=== PATIENT | female | born 1945 | race Two or more races ===

== ENCOUNTER → 2016-11-23 | Outpatient (CLI) | payer OTHER, MEDICAID ==
[~2016-11-23] MED LIST: AMIT50TA3 PO; ASPI81CH43 PO; CITA-77 PO; CLON0.1T PO; LORA1TAB12 PO; LOSA100T27 PO; METF-312 PO; METO-291 PO; OLMETAB3 PO; OMEP20TA85 PO; pravastatin PO
== END | disposition home or self-care (01) ==
LOC: HDHVI->DVH 09:05
PROVIDERS: ATTEND Internal Medicine Cardiovascular Disease
DX: R00.2 Palpitations (principal); E11.9 Type 2 diabetes mellitus without complications; Z95.0 Presence of cardiac pacemaker
CPT/HCPCS: 93306

== ENCOUNTER 2016-12-07 21:32 | Inpatient (IN) | payer OTHER, MEDICAID ==
[~2016-12-07] VITALS: Ht 162.6 cm; Wt 63.1 kg
[~2016-12-07 21:32] MED LIST changes: -ADENOSINE 55 MG in GIVE UN-DILUTED 0 ML IV ONE; -ADENOSINE 90 MG/30 ML INJ IV ONE; -AMI200T PO; -AMIT25TA9 PO; -CARV6.2551 PO; -LEVO50TA7 PO; -LINA5TAB PO; -RIVA20TA PO
[2016-12-07] MEDS ORDERED: LORazepam 2MG/ML-1ML VIAL IV ONE (22:45)
[2016-12-07 22:56] LABS: Basophils # (auto) 0 uL; Basophils % (auto) 0.5 % (0.0-2.0); Eosinophils # (auto) 0.2 uL; Eosinophils % (auto) 3.4 % (0.0-7.0); Hematocrit 43.4 % (36.0-46.0); Hemoglobin 14.1 g/dL (12.2-16.2); Lymphocytes # (auto) 2.7 uL; Lymphocytes % (auto) 48.9 % (10.0-50.0); Mean Corpuscular Hemoglobin 28.6 pg (28.0-32.0); Mean Corpuscular Hgb Conc. 32.5 g/dL (32.0-36.0); Mean Corpuscular Volume 87.8 fL (80.0-100.0); Mean Platelet Volume 7.6 fL (7.4-10.4); Monocytes # (auto) 0.7 uL; Monocytes % (auto) 11.9 % (0.0-12.0); Neutrophils % (auto) 35.3 % (37.0-80.0); Platelet Count (auto) 407 10^3/uL (140-450); Red Cell Distribution Width 13.9 % (11.6-16.0); White Blood Cell 5.5 10^3/uL (4.4-10.8)
[2016-12-07 23:02] LABS: B-Type Natriuretic Peptide 74.87 pg/mL (0-100)
[2016-12-07 23:11] LABS: Temperature: 22.4 C (20.0-25.0)
[2016-12-07 23:26] LABS: Albumin 3.3 g/dL (3.4-5.0); Bilirubin, Total 0.2 mg/dL (0.2-1.0); Calcium 8.7 mg/dL (8.5-10.1); Magnesium 2.4 mg/dL (1.6-2.6); Potassium 3.4 mmol/L (3.5-5.1); Total Protein 7.9 g/dL (6.4-8.2)
[2016-12-08] MEDS ORDERED: NITROGLYCERIN 0.4 MG SL TAB SL PRN ×2 (02:30→21:00)
[2016-12-08] MEDS ORDERED: POTASSIUM CHL 20 Meq TABLET PO ONE (02:30)
[2016-12-08] MEDS ORDERED: MORPHINE SULF INJ 2 MG/ML SYRINGE 1ML IV PRN ×2 (02:30→21:00)
[2016-12-08] MEDS ORDERED: ONDANSETRON HCL 4 MG/2 ML VIAL IV PRN (02:30)
[2016-12-08] MEDS ORDERED: ACETAMINOPHEN 325 MG TAB PO PRN (02:30)
[2016-12-08] MEDS ORDERED: TEMAZEPAM 15 MG CAP PO PRN (02:30)
[2016-12-08 03:30] VITALS: BP_SYST 118; BP_SYST 131; BP_DIAS 76; BP_DIAS 77
[2016-12-08 05:00] VITALS: BP 118/76
[2016-12-08] MEDS ORDERED: RIVA20TA PO (06:06)
[2016-12-08] MEDS ORDERED: CARV6.2551 PO (06:06)
[2016-12-08] MEDS ORDERED: AMI200T PO (06:06)
[2016-12-08] MEDS ORDERED: AMIT25TA9 PO (06:06)
[2016-12-08] MEDS ORDERED: LINA5TAB PO (06:06)
[2016-12-08] MEDS ORDERED: LEVO50TA7 PO (06:06)
[2016-12-08 09:00] VITALS: BP 115/87
[2016-12-08] MEDS: METOPROLOL SUCCINATE XL 50 MG TAB PO SCH (09:47)
[2016-12-08] MEDS: ASPirin 81 mg TAB PO SCH (09:47)
[2016-12-08] MEDS: CITALOPRAM HYDROBR 20 MG TAB PO SCH (09:47)
[2016-12-08] MEDS: LOSARTAN POTASSIUM 50 MG TAB PO SCH (09:47)
[2016-12-08] MEDS: amLODIPine BESYLATE 5 MG TAB PO SCH (09:48)
[2016-12-08] MEDS: FAMOTIDINE 20 MG TAB PO SCH ×2 (09:48→22:42)
[2016-12-08] MEDS: HCTZ 25 MG TAB PO SCH (09:49)
[2016-12-08] MEDS: ENOXAPARIN SOD 40 MG/0.4 ML SYRINGE SC SCH (09:53)
[2016-12-08] MEDS ORDERED: TRIBENZOR 5 MG PO SCH (10:00)
[2016-12-08 12:19] VITALS: BP 110/73
[2016-12-08 16:13] VITALS: BP 113/72
[2016-12-08] MEDS ORDERED: NITROGLYCERIN 0.4 MG SL TAB SL ONE (20:52)
[2016-12-08 22:00] VITALS: BP 146/106
[2016-12-08] MEDS: PRAVASTATIN SODIUM 20 MG TAB PO SCH (22:42)
[2016-12-08] MEDS: AMITRIPTYLINE HCL 25 MG TAB PO SCH (22:43)
[2016-12-09 04:59] VITALS: BP 127/82
[2016-12-09 06:31] LABS: Basophils # (auto) 0 uL; Basophils % (auto) 0.6 % (0.0-2.0); Eosinophils # (auto) 0.2 uL; Eosinophils % (auto) 2.8 % (0.0-7.0); Hematocrit 45.2 % (36.0-46.0); Hemoglobin 14.5 g/dL (12.2-16.2); Lymphocytes # (auto) 3.1 uL; Lymphocytes % (auto) 48.5 % (10.0-50.0); Mean Corpuscular Hemoglobin 28.4 pg (28.0-32.0); Mean Corpuscular Hgb Conc. 32.1 g/dL (32.0-36.0); Mean Corpuscular Volume 88.4 fL (80.0-100.0); Mean Platelet Volume 7.5 fL (7.4-10.4); Monocytes # (auto) 0.7 uL; Monocytes % (auto) 10.2 % (0.0-12.0); Neutrophils # (auto) 2.5 uL; Neutrophils % (auto) 37.9 % (37.0-80.0); Platelet Count (auto) 429 10^3/uL (140-450); Red Cell Distribution Width 13.6 % (11.6-16.0); White Blood Cell 6.5 10^3/uL (4.4-10.8)
[2016-12-09 06:40] LABS: Albumin 3.5 g/dL (3.4-5.0); BUN/Creatinine Ratio 14.9; Calcium 8.8 mg/dL (8.5-10.1); Magnesium 2.3 mg/dL (1.6-2.6)
[2016-12-09 06:42] LABS: Bilirubin, Total 0.4 mg/dL (0.2-1.0); Total Protein 8.1 g/dL (6.4-8.2)
[2016-12-09 08:00] VITALS: BP 125/82
[2016-12-09] MEDS: HYDROcodone-ACET 5/325MG TAB PO PRN (08:15)
[2016-12-09 09:07] VITALS: BP 125/82
[2016-12-09] MEDS: amLODIPine BESYLATE 5 MG TAB PO SCH (10:08)
[2016-12-09] MEDS: ENOXAPARIN SOD 40 MG/0.4 ML SYRINGE SC SCH (10:08)
[2016-12-09] MEDS: HCTZ 25 MG TAB PO SCH (10:09)
[2016-12-09] MEDS: LOSARTAN POTASSIUM 50 MG TAB PO SCH (10:09)
[2016-12-09] MEDS: FAMOTIDINE 20 MG TAB PO SCH ×2 (10:10→22:24)
[2016-12-09] MEDS: ASPirin 81 mg TAB PO SCH (10:10)
[2016-12-09] MEDS: CITALOPRAM HYDROBR 20 MG TAB PO SCH (10:10)
[2016-12-09] MEDS: METOPROLOL SUCCINATE XL 50 MG TAB PO SCH (10:10)
[2016-12-09 13:37] VITALS: BP 106/80
[2016-12-09 17:00] VITALS: BP 119/84
[2016-12-09 22:00] VITALS: BP 106/68
[2016-12-09 22:07] LABS: Thyroxine (T4) 8.2 ug/dL (4.5-12.0)
[2016-12-09] MEDS: AMITRIPTYLINE HCL 25 MG TAB PO SCH (22:24)
[2016-12-09] MEDS: PRAVASTATIN SODIUM 20 MG TAB PO SCH (22:24)
[2016-12-10 05:00] VITALS: BP 116/82
[2016-12-10 08:00] VITALS: BP 115/88
[2016-12-10 09:00] VITALS: BP 115/88
[2016-12-10] MEDS: METOPROLOL SUCCINATE XL 50 MG TAB PO SCH (10:00)
[2016-12-10] MEDS: HCTZ 25 MG TAB PO SCH (10:00)
[2016-12-10] MEDS: amLODIPine BESYLATE 5 MG TAB PO SCH (10:00)
[2016-12-10] MEDS: FAMOTIDINE 20 MG TAB PO SCH ×2 (10:00→21:25)
[2016-12-10] MEDS: LOSARTAN POTASSIUM 50 MG TAB PO SCH (10:00)
[2016-12-10 13:00] VITALS: BP 103/82
[2016-12-10] MEDS: ASPirin 81 mg TAB PO SCH (13:08)
[2016-12-10] MEDS: CITALOPRAM HYDROBR 20 MG TAB PO SCH (13:08)
[2016-12-10] MEDS: ENOXAPARIN SOD 40 MG/0.4 ML SYRINGE SC SCH (13:10)
[2016-12-10 17:00] VITALS: BP 128/80
[2016-12-10] MEDS: PRAVASTATIN SODIUM 20 MG TAB PO SCH (21:25)
[2016-12-10] MEDS: AMITRIPTYLINE HCL 25 MG TAB PO SCH (21:25)
[2016-12-10 22:00] VITALS: BP 135/80
[2016-12-11] VITALS (7 sets, daily range): BP systolic 103–137; BP diastolic 70–94
[2016-12-11 01:31] LABS: INR 1.06 (0.9-1.15); Partial Thromboplastin Time 26.1 sec (22.64-33.71); Prothrombin Time 11.4 sec (9.37-12.3)
[2016-12-11] MEDS ORDERED: SODIUM CHL 0.9% 0 ML ONE (08:23)
[2016-12-11] MEDS ORDERED: fentaNYL CITRATE 100 MCG/2 ML VL ONE (08:23)
[2016-12-11] MEDS ORDERED: MIDAZOLAM HCL 1MG/1ML-2 ML VIAL ONE (08:23)
[2016-12-11] MEDS ORDERED: ANGIOMAX 250 MG VIAL IV ONE (08:23)
[2016-12-11] MEDS ORDERED: EPTIFIBATIDE INJ (2MG/ML) 10ML VIAL IV ONE (08:23)
[2016-12-11] MEDS ORDERED: IOHEXOL 350 MG/ML 100ML IJ ONE (08:24)
[2016-12-11] MEDS ORDERED: LIDOCAINE 2%HCL (LOCAL ANESTH.) INJ 20ML MDV ONE (08:24)
[2016-12-11] MEDS: LOSARTAN POTASSIUM 50 MG TAB PO SCH ×2 (10:00→10:34)
[2016-12-11] MEDS: HCTZ 25 MG TAB PO SCH (10:00)
[2016-12-11] MEDS: amLODIPine BESYLATE 5 MG TAB PO SCH (10:00)
[2016-12-11] MEDS: CITALOPRAM HYDROBR 20 MG TAB PO SCH ×2 (10:00→10:34)
[2016-12-11] MEDS ORDERED: SODIUM CHLORIDE 0.9% 1,000 ML IV SCH (10:28)
[2016-12-11] MEDS: ENOXAPARIN SOD 40 MG/0.4 ML SYRINGE SC SCH (10:31)
[2016-12-11] MEDS: METOPROLOL SUCCINATE XL 50 MG TAB PO SCH (10:33)
[2016-12-11] MEDS: ASPirin 81 mg TAB PO SCH (10:34)
[2016-12-11] MEDS: FAMOTIDINE 20 MG TAB PO SCH ×2 (10:36→22:02)
[2016-12-11] MEDS: SODIUM CHLOR 0.9% PF (SALINE LOCK) 10ML VIAL IV SCH ×2 (14:00→22:03)
[2016-12-11] MEDS: HYDROcodone-ACET 5/325MG TAB PO PRN (21:05)
[2016-12-11] MEDS: PRAVASTATIN SODIUM 20 MG TAB PO SCH (22:02)
[2016-12-11] MEDS: AMITRIPTYLINE HCL 25 MG TAB PO SCH (22:02)
[2016-12-12 05:01] VITALS: BP 105/87
[2016-12-12 05:49] LABS: Basophils # (auto) 0 uL; Basophils % (auto) 0.7 % (0.0-2.0); Eosinophils # (auto) 0.2 uL; Eosinophils % (auto) 3.8 % (0.0-7.0); Hematocrit 38.4 % (36.0-46.0); Hemoglobin 12.5 g/dL (12.2-16.2); Lymphocytes # (auto) 2.4 uL; Lymphocytes % (auto) 41.6 % (10.0-50.0); Mean Corpuscular Hemoglobin 28.4 pg (28.0-32.0); Mean Corpuscular Hgb Conc. 32.5 g/dL (32.0-36.0); Mean Corpuscular Volume 87.4 fL (80.0-100.0); Mean Platelet Volume 7.4 fL (7.4-10.4); Monocytes # (auto) 0.6 uL; Neutrophils # (auto) 2.5 uL; Neutrophils % (auto) 42.9 % (37.0-80.0); Platelet Count (auto) 350 10^3/uL (140-450); Red Cell Distribution Width 13.5 % (11.6-16.0); White Blood Cell 5.8 10^3/uL (4.4-10.8)
[2016-12-12] MEDS: SODIUM CHLOR 0.9% PF (SALINE LOCK) 10ML VIAL IV SCH (06:00)
[2016-12-12 06:21] LABS: BUN/Creatinine Ratio 17.8; Calcium 8.4 mg/dL (8.5-10.1); Magnesium 2.2 mg/dL (1.6-2.6); Potassium 3.9 mmol/L (3.5-5.1)
[2016-12-12] MEDS ORDERED: MIDAZOLAM HCL 1MG/1ML-2 ML VIAL ONE (08:19)
[2016-12-12] MEDS ORDERED: fentaNYL CITRATE 100 MCG/2 ML VL ONE (08:19)
[2016-12-12 09:00] VITALS: BP 130/80
[2016-12-12] MEDS ORDERED: fentaNYL CITRATE 100 MCG/2 ML VL IV ONE (10:00)
[2016-12-12] MEDS ORDERED: MIDAZOLAM HCL 1MG/1ML-2 ML VIAL IV ONE (10:00)
[2016-12-12 13:35] VITALS: BP 114/71
[2016-12-12 16:29] VITALS: BP 147/83
[2016-12-12 17:00] VITALS: BP 119/84
== END 2016-12-12 18:30 | disposition home or self-care (01) | DRG 286 ==
LOC: ER 21:41 → TELE 21:42 → EAST 12-08 03:33 → TELE-EAST 12-08 20:32
PROVIDERS: ADMIT Nurse Practitioner; ATTEND Internal Medicine
PROC: 4A023N7 Measurement of Cardiac Sampling and Pressure, Left Heart, Percutaneous Approach (ICD-10-PCS; principal; 2016-12-11)
PROC: B2111ZZ Fluoroscopy of Multiple Coronary Arteries using Low Osmolar Contrast (ICD-10-PCS; 2016-12-11)
PROC: B246ZZ4 Ultrasonography of Right and Left Heart, Transesophageal (ICD-10-PCS; 2016-12-11)
PROC: B2151ZZ Fluoroscopy of Left Heart using Low Osmolar Contrast (ICD-10-PCS; 2016-12-11)
DX: I48.0 Paroxysmal atrial fibrillation (principal); I50.21 Acute systolic (congestive) heart failure; D68.59 Other primary thrombophilia; I42.0 Dilated cardiomyopathy; E03.9 Hypothyroidism, unspecified; E87.6 Hypokalemia; D64.9 Anemia, unspecified; I34.0 Nonrheumatic mitral (valve) insufficiency; F41.8 Other specified anxiety disorders; F32.9 Major depressive disorder, single episode, unspecified; F41.9 Anxiety disorder, unspecified; I11.0 Hypertensive heart disease with heart failure; I20.9 Angina pectoris, unspecified; I73.9 Peripheral vascular disease, unspecified; K21.9 Gastro-esophageal reflux disease without esophagitis; Z88.0 Allergy status to penicillin; Z95.0 Presence of cardiac pacemaker
CPT/HCPCS: 36415; 71010; 80048; 80053; 80061; 83735; 83880; 84439; 84443; 84484; 85025; 85610; 85730; 86850; 86900; 86901; 87081; 93005; 93312; 96374; 99152; J2250

== ENCOUNTER → 2016-12-07 | Outpatient (CLI) | payer OTHER, MEDICAID ==
[~2016-12-07] VITALS: Ht 157.5 cm; Wt 65.8 kg
[~2016-12-07] MED LIST changes: +ADENOSINE 55 MG in GIVE UN-DILUTED 0 ML IV ONE; +ADENOSINE 90 MG/30 ML INJ IV ONE; +AMI200T PO; +AMIT25TA9 PO; +CARV6.2551 PO; +LEVO50TA7 PO; +LINA5TAB PO; +RIVA20TA PO
== END | disposition home or self-care (01) ==
LOC: Rad HDHVI 09:30
PROVIDERS: ATTEND Internal Medicine Cardiovascular Disease
DX: I10 Essential (primary) hypertension (principal); E11.9 Type 2 diabetes mellitus without complications
CPT/HCPCS: 78452; 93005; 96374; 96375; A9500; J0153

== ENCOUNTER 2016-12-13 21:15 | Inpatient (IN) | payer OTHER, MEDICAID ==
[~2016-12-13] VITALS: Ht 162.6 cm; Wt 63.5 kg
[~2016-12-13 21:15] MED LIST changes: +AMI200T PO; +AMIT25TA9 PO; +CARV6.2551 PO; +LEVO50TA7 PO; +LINA5TAB PO; +RIVA20TA PO
[2016-12-13 21:48] LABS: Basophils # (auto) 0 uL; Basophils % (auto) 0.5 % (0.0-2.0); Eosinophils # (auto) 0.2 uL; Eosinophils % (auto) 2.7 % (0.0-7.0); Hemoglobin 14.2 g/dL (12.2-16.2); Lymphocytes # (auto) 2.4 uL; Lymphocytes % (auto) 33.9 % (10.0-50.0); Mean Corpuscular Hemoglobin 28.6 pg (28.0-32.0); Mean Corpuscular Hgb Conc. 33.1 g/dL (32.0-36.0); Mean Corpuscular Volume 86.3 fL (80.0-100.0); Mean Platelet Volume 7.6 fL (7.4-10.4); Monocytes # (auto) 0.7 uL; Monocytes % (auto) 10.1 % (0.0-12.0); Neutrophils # (auto) 3.7 uL; Neutrophils % (auto) 52.8 % (37.0-80.0); Platelet Count (auto) 401 10^3/uL (140-450); Red Cell Distribution Width 13.6 % (11.6-16.0); White Blood Cell 7.1 10^3/uL (4.4-10.8)
[2016-12-13 21:56] LABS: INR 1.07 (0.9-1.15); Prothrombin Time 11.6 sec (9.37-12.3)
[2016-12-13 22:00] LABS: Albumin 3.7 g/dL (3.4-5.0); Anion Gap 8 (5-15); Aspartate Aminotransferase 28 U/L (15-37); BUN/Creatinine Ratio 13.7; Blood Urea Nitrogen 13 mg/dL (7-18); Calcium 9.1 mg/dL (8.5-10.1); Carbon Dioxide 27 mmol/L (21-32); Chloride 106 mmol/L (98-107); GFR African American 75 mL/min; GFR Non-African American 62 mL/min; Glucose 149 mg/dL (74-106); Potassium 3.3 mmol/L (3.5-5.1); Sodium 141 mmol/L (136-145)
[2016-12-13 22:04] LABS: Alkaline Phosphatase 111 U/L (45-117); Bilirubin, Total 0.3 mg/dL (0.2-1.0); Total Protein 8.3 g/dL (6.4-8.2)
[2016-12-13] MEDS ORDERED: MORPHINE SULFATE 4 MG/ML SYRG IV ONE (22:30)
[2016-12-13] MEDS ORDERED: ONDANSETRON HCL 4 MG/2 ML VIAL IV ONE (22:30)
[2016-12-13] MEDS ORDERED: NITROGLYCERIN 0.4 MG SL TAB SL ONE (22:55)
[2016-12-14] MEDS ORDERED: ASPirin 81 mg TAB PO ONE (01:15)
[2016-12-14] MEDS ORDERED: MORPHINE SULF INJ 2 MG/ML SYRINGE 1ML IV PRN (06:30)
[2016-12-14] MEDS ORDERED: ACETAMINOPHEN 325 MG TAB PO PRN (06:30)
[2016-12-14] MEDS ORDERED: NITROGLYCERIN 0.4 MG SL TAB SL PRN (06:30)
[2016-12-14] MEDS ORDERED: TEMAZEPAM 15 MG CAP PO PRN (06:30)
[2016-12-14] MEDS ORDERED: DEXTROSE (50%) 50ML SYRG IV PRN (06:30)
[2016-12-14] MEDS ORDERED: ONDANSETRON HCL 4 MG/2 ML VIAL IV PRN (06:30)
[2016-12-14] MEDS ORDERED: HYDROcodone-ACET 5/325MG TAB PO PRN (06:30)
[2016-12-14] MEDS: LEVOTHYROXINE SODIUM 50 MCG TAB PO SCH (07:17)
[2016-12-14] MEDS: FAMOTIDINE 20 MG TAB PO SCH (07:21)
[2016-12-14] MEDS: ASPirin 81 mg TAB PO SCH (07:21)
[2016-12-14] MEDS: CARVEDILOL 3.125 MG TAB PO SCH ×2 (07:21→21:28)
[2016-12-14] MEDS: AMIODARONE HCL 200 MG TAB PO SCH ×2 (07:21→21:28)
[2016-12-14] MEDS ORDERED: PATIENTS OWN MEDICATION (xarelto 20 MG) PO SCH (10:00)
[2016-12-14] MEDS ORDERED: FAMOTIDINE 20 MG TAB PO SCH (10:00)
[2016-12-14] MEDS ORDERED: NITROGLYCERIN 0.4 MG SL TAB SL ONE (10:00)
[2016-12-14 11:30] VITALS: BP 106/58
[2016-12-14] MEDS: InsuLIN REG 1unit/0.01ml Soln (100units/ml) SC SCH ×3 (12:00→23:47)
[2016-12-14] MEDS: ACCU-CHEK COMFORT CURVE STRIP VI SCH ×3 (12:27→23:47)
[2016-12-14 16:30] VITALS: BP 125/83
[2016-12-14] MEDS ORDERED: RIVAROXABAN 15 MG TAB PO SCH (18:00)
[2016-12-14] MEDS ORDERED: AMITRIPTYLINE HCL 25 MG TAB PO SCH (22:00)
[2016-12-14 23:04] VITALS: BP 132/82
[2016-12-15 05:10] VITALS: BP 102/71
[2016-12-15 05:43] LABS: Basophils # (auto) 0.1 uL; Basophils % (auto) 0.9 % (0.0-2.0); Eosinophils # (auto) 0.3 uL; Eosinophils % (auto) 4.8 % (0.0-7.0); Hematocrit 38.4 % (36.0-46.0); Hemoglobin 12.5 g/dL (12.2-16.2); Lymphocytes # (auto) 2.2 uL; Lymphocytes % (auto) 37.8 % (10.0-50.0); Mean Corpuscular Hemoglobin 28.5 pg (28.0-32.0); Mean Corpuscular Hgb Conc. 32.5 g/dL (32.0-36.0); Mean Corpuscular Volume 87.6 fL (80.0-100.0); Mean Platelet Volume 7.5 fL (7.4-10.4); Monocytes # (auto) 0.5 uL; Monocytes % (auto) 9.2 % (0.0-12.0); Neutrophils # (auto) 2.8 uL; Neutrophils % (auto) 47.3 % (37.0-80.0); Platelet Count (auto) 354 10^3/uL (140-450); Red Cell Distribution Width 13.5 % (11.6-16.0); White Blood Cell 5.9 10^3/uL (4.4-10.8)
[2016-12-15] MEDS: ACCU-CHEK COMFORT CURVE STRIP VI SCH ×2 (05:54→11:17)
[2016-12-15] MEDS: InsuLIN REG 1unit/0.01ml Soln (100units/ml) SC SCH ×2 (05:55→11:26)
[2016-12-15 06:06] LABS: Albumin 3.2 g/dL (3.4-5.0); BUN/Creatinine Ratio 17.6; Calcium 8.3 mg/dL (8.5-10.1); Potassium 3.6 mmol/L (3.5-5.1)
[2016-12-15 06:09] LABS: Bilirubin, Total 0.4 mg/dL (0.2-1.0)
[2016-12-15] MEDS: LEVOTHYROXINE SODIUM 50 MCG TAB PO SCH (06:35)
[2016-12-15 08:00] VITALS: BP 130/87
[2016-12-15] MEDS: ASPirin 81 mg TAB PO SCH (09:30)
[2016-12-15] MEDS: AMIODARONE HCL 200 MG TAB PO SCH (09:31)
[2016-12-15] MEDS: FAMOTIDINE 20 MG TAB PO SCH (09:31)
[2016-12-15] MEDS: CARVEDILOL 3.125 MG TAB PO SCH (09:31)
[2016-12-15 15:31] VITALS: BP 108/77
== END 2016-12-15 16:00 | disposition home or self-care (01) | DRG 206 ==
LOC: ER 21:15 → TELE 21:16 → TELE-E-ADS 12-14 08:10 → TELE-EAST 12-14 08:20
PROVIDERS: ADMIT Nurse Practitioner; ATTEND Internal Medicine
DX: M94.0 Chondrocostal junction syndrome [Tietze] (principal); D68.69 Other thrombophilia; E11.9 Type 2 diabetes mellitus without complications; I48.2 Chronic atrial fibrillation; F41.9 Anxiety disorder, unspecified; R07.89 Other chest pain; I10 Essential (primary) hypertension; I73.9 Peripheral vascular disease, unspecified; I34.0 Nonrheumatic mitral (valve) insufficiency; K21.9 Gastro-esophageal reflux disease without esophagitis; Z82.3 Family history of stroke; Z82.49 Family history of ischemic heart disease and other diseases of the circulatory system; Z88.0 Allergy status to penicillin
CPT/HCPCS: 36415; 70450; 71010; 80053; 82962; 84484; 85025; 85610; 85730; 87081; 93005; 96374; 96375; 96376; J1815; J2405

== ENCOUNTER → 2017-01-30 | Outpatient (CLI) | payer MEDICARE, MEDICAID ==
[~2017-01-30] MED LIST changes: -AMIT50TA3 PO; -ASPI81CH43 PO; -CITA-77 PO; -CLON0.1T PO; -LORA1TAB12 PO; -LOSA100T27 PO; -METF-312 PO; -METO-291 PO; -OLMETAB3 PO
== END | disposition home or self-care (01) ==
LOC: Rad HDHVI 13:07
PROVIDERS: ATTEND Internal Medicine Cardiovascular Disease
DX: I48.1 Persistent atrial fibrillation (principal); E11.9 Type 2 diabetes mellitus without complications
CPT/HCPCS: 93306

== ENCOUNTER → 2018-12-19 | Outpatient (CLI) | payer MEDICARE, MEDICAID ==
[~2018-12-19] VITALS: Ht 157.5 cm; Wt 63.5 kg
[~2018-12-19] MED LIST changes: +ADENOSINE 53 MG in GIVE UN-DILUTED 0 ML IV ONE; +ADENOSINE 90 MG/30 ML INJ IV ONE
== END | disposition home or self-care (01) ==
LOC: Rad HDHVI 08:37
PROVIDERS: ATTEND Internal Medicine Cardiovascular Disease
DX: I49.5 Sick sinus syndrome (principal); I48.0 Paroxysmal atrial fibrillation; R74.8 Abnormal levels of other serum enzymes; R06.02 Shortness of breath; R94.31 Abnormal electrocardiogram [ECG] [EKG]; Z95.0 Presence of cardiac pacemaker; I10 Essential (primary) hypertension; E78.00 Pure hypercholesterolemia, unspecified
CPT/HCPCS: 78452; 82962; 93005; 93306; 96374; 96375; A9500; J0153

== ENCOUNTER → 2020-11-11 | Outpatient (CLI) | payer MEDICARE, MEDICAID ==
[~2020-11-11] MED LIST changes: -ADENOSINE 53 MG in GIVE UN-DILUTED 0 ML IV ONE; -ADENOSINE 90 MG/30 ML INJ IV ONE; -AMI200T PO; +AMIO200T4 PO
== END | disposition home or self-care (01) ==
LOC: Rad HDHVI 13:56
PROVIDERS: ATTEND Internal Medicine Cardiovascular Disease
DX: R00.2 Palpitations (principal); R06.02 Shortness of breath
CPT/HCPCS: 93306

== ENCOUNTER → 2020-11-16 | Outpatient (CLI) | payer MEDICARE, MEDICAID ==
[~2020-11-16] VITALS: Ht 157.5 cm; Wt 59.0 kg
== END | disposition home or self-care (01) ==
LOC: LAB 08:06
PROVIDERS: ATTEND Internal Medicine Cardiovascular Disease
DX: I48.0 Paroxysmal atrial fibrillation (principal); I10 Essential (primary) hypertension; E78.00 Pure hypercholesterolemia, unspecified; E11.9 Type 2 diabetes mellitus without complications; I49.5 Sick sinus syndrome; Z82.49 Family history of ischemic heart disease and other diseases of the circulatory system; Z95.0 Presence of cardiac pacemaker
CPT/HCPCS: 78452; 93017; 96374; A9500